=== PATIENT | male | born 2000 | race Caucasian/White ===

== ENCOUNTER 2019-06-29 20:44 | Emergency (ER) | payer OTHER ==
[2019-06-29 21:51] VITALS: BP 128/80; PULSE 101; RESP 20; TEMP 99; O2SAT 99
== END 2019-06-29 21:40 | disposition home or self-care (01) | DRG 156 ==
LOC: ED 20:44
DX: R09.81 Nasal congestion (principal); J02.9 Acute pharyngitis, unspecified; J06.9 Acute upper respiratory infection, unspecified
CPT/HCPCS: 99282